=== PATIENT | female | born 1985 | race Caucasian/White ===

== ENCOUNTER 2022-06-23 13:32 | Inpatient (IN) ==
[2022-06-23 13:43] VITALS: BMI 17.2
[2022-06-23 14:04] LABS: BILIRUBIN,URINE NEGATIVE (NEGATIVE); BLOOD/HEMOGLOBIN,URINE 1+ (NEGATIVE); GLUCOSE, URINE NEGATIVE (NEGATIVE); KETONES,URINE NEGATIVE (NEGATIVE); LEUKOCYTE ESTERASE ,URINE 2+ (NEGATIVE); NITRITES,URINE NEGATIVE (NEGATIVE); PROTEIN,URINE NEGATIVE (NEGATIVE); UROBILINOGEN,URINE NORMAL (NORMAL)
[2022-06-23] MEDS ORDERED: D5 1/2 NS 1,000 ML 1,000 ML IV ONE (14:09)
[2022-06-23] MEDS ORDERED: LR 1,000 ML IV 1,000 ML IV ONE (14:09)
[2022-06-23] MEDS ORDERED: AMPICILLIN VIAL 2 GRAM ONE (14:09)
[2022-06-23] MEDS ORDERED: NS 100 ML IV 100 ML ONE (14:09)
[2022-06-23 14:10] LABS: COLOR,URINE YELLOW (YELLOW)
[2022-06-23 14:11] LABS: APPEARANCE,URINE CLEAR (CLEAR); BACTERIA,URINE NEGATIVE /HPF (NEGATIVE); RBC,URINE 0-2 /HPF (0-3); SQUAMOUS EPITHELIAL CELL,UR RARE /HPF (NEGATIVE)
[2022-06-23 14:19] LABS: AMNISURE ROM TEST THERE IS A RUPTURE (NO RUPTURE)
[2022-06-23] MEDS ORDERED: MORPHINE SULFATE INJ 2 MG INJ IVP PRN (14:27)
[2022-06-23] MEDS ORDERED: D5 LR + PITOCIN 10 UNITS/L 10 UNITS/1,000 ML BAG IV PRN (14:27)
[2022-06-23] MEDS ORDERED: REGLAN INJ 10 MG VIAL IVP PRN (14:27)
[2022-06-23] MEDS ORDERED: PITOCIN IVP ONE (14:27)
[2022-06-23] MEDS ORDERED: PHENERGAN INJ 25 MG IM PRN ×2 (14:27→17:39)
[2022-06-23] MEDS ORDERED: AMPICILLIN VIAL 2 GRAM 2 G in NS 100 ML IV + SPIKE MINIBAG* 100 ML IV SCH (15:00)
[2022-06-23] MEDS ORDERED: D5 1/2 NS 1,000 ML 1,000 ML IV SCH (15:00)
[2022-06-23 15:05] LABS: BLOOD UREA NITROGEN 4 mg/dL (7-18); CALCIUM 7.7 mg/dL (8.5-10.1); CARBON DIOXIDE 35.8 mmol/L (21-32); CHLORIDE 94 mmol/L (98-107); SODIUM 130 mmol/L (136-145); eGFR NON BLACK RACES > 60 (>60)
[2022-06-23] MEDS ORDERED: PITOCIN ONE (15:05)
[2022-06-23] MEDS ORDERED: BETADINE SOLN ONE (15:05)
[2022-06-23] MEDS ORDERED: D5 1/2 NS 1,000 mL + PITOCIN 20 UNITS/L IV 20 UNITS/1,000 ML BAG IV ONE (15:05)
[2022-06-23 15:06] LABS: BASOPHILS % (AUTO) 0.3 % (0.2-1.0); EOSINOPHILS % (AUTO) 0.4 % (0.9-2.9); HEMATOCRIT 33.2 % (36.0-47.0); HEMOGLOBIN 11.9 g/dL (12.0-16.0); LYMPHOCYTES # (AUTO) 2.4 X10^3/uL (1.3-2.9); LYMPHOCYTES % (AUTO) 21.2 % (21.0-51.0); MEAN CORPUSCULAR HEMOGLOBIN 31.1 pg (27.0-34.0); MEAN CORPUSCULAR HGB CONC 35.7 g/dL (33.0-35.0); MEAN CORPUSCULAR VOLUME 87.2 fL (80.0-100.0); MEAN PLATELET VOLUME 9.2 fL (7.4-11.0); MONOCYTES # (AUTO) 0.7 x10^3/uL (0.3-0.8); MONOCYTES % (AUTO) 6.1 % (0.0-13.0); NEUTROPHILS # (AUTO) 8.3 x10^3/uL (2.2-4.8); RED BLOOD COUNT 3.81 X10^6/uL (3.5-5.4); RED CELL DISTRIBUTION WIDTH 12.9 % (11.6-16.5); WHITE BLOOD COUNT 11.5 X10^3/uL (3.6-10.0)
[2022-06-23] MEDS: STADOL INJ IVP PRN ×2 (15:17→17:39)
[2022-06-23] MEDS ORDERED: STADOL INJ ONE ×2 (15:17→17:39)
[2022-06-23] MEDS ORDERED: AMPICILLIN VIAL 2 GRAM 2 G in NS 100 ML IV 100 ML IV NR (16:00)
[2022-06-23] MEDS ORDERED: MOTRIN TAB 800 MG PO PRN (17:39)
--- NOTE | 2022-06-23 17:39 | DR.OB ---
OB Quick Note - Assessment/Plan Assessment/Plan: Delivery Note [employer]QUOR TESTER 06/23/22 at 5:19pm Patient complete and pushing. Head delivered over intact perineum. Nose and mouth bulb suctioned. Nuchal cord x 1 reduced. Body delivered over intact perineum. Cord clamped x 2 and cut. Infant handed to attendant. Cord sent for gases. Placenta delivered spontaneously / intact / 3 vessel cord. No CVX / vaginal / perineal tears noted. Viable male , VTX/OA, wt.=3'14" and 9/9, stable to NBN. [id number].
[2022-06-23] MEDS: D5 1/2 NS 1,000 ML 1,000 ML with PITOCIN 20 UNITS IV SCH ×2 (18:03)
[2022-06-23] MEDS ORDERED: PERCOCET TAB 5/325 MG PO PRN (18:32)
[2022-06-23] MEDS ORDERED: AMBIEN PO PRN (18:32)
[2022-06-23] MEDS ORDERED: MILK OF MAGNESIA PO PRN (18:32)
[2022-06-23] MEDS ORDERED: ADACEL or BOOSTRIX TDaP VACCINE IM ONE (18:32)
[2022-06-23] MEDS ORDERED: DERMOPLAST PAIN RELIEF SPRAY TOP PRN (18:32)
[2022-06-23] MEDS: NORMODYNE TAB 100 MG PO SCH (21:23)
[2022-06-23] MEDS ORDERED: MYLICON TAB 80 MG CHEW PO PRN (21:44)
[2022-06-23] MEDS: NICOTINE PATCH TD SCH (22:17)
[2022-06-24] MEDS: D5 1/2 NS 1,000 ML 1,000 ML with PITOCIN 20 UNITS IV SCH ×2 (02:16)
[2022-06-24 05:10] LABS: HEMATOCRIT 29.3 % (36.0-47.0); HEMOGLOBIN 10.5 g/dL (12.0-16.0)
[2022-06-24 06:02] VITALS: BP 101/65
[2022-06-24] MEDS ORDERED: PROTONIX TAB 40 MG PO ONE (07:58)
[2022-06-24] MEDS ORDERED: ADACEL or BOOSTRIX TDaP VACCINE IM ONE (08:01)
[2022-06-24] MEDS: NICOTINE PATCH TD SCH (08:14)
[2022-06-24] MEDS: NORMODYNE TAB 100 MG PO SCH (08:14)
[2022-06-24] MEDS ORDERED: PRENATAL PLUS PO SCH (09:00)
[2022-06-24] MEDS ORDERED: PROTONIX TAB 40 MG PO SCH (09:00)
== END 2022-06-24 09:14 | disposition home or self-care (01) | DRG 998 ==
LOC: ER 13:32 → LD 14:27 → ICU 18:50
PROVIDERS: ADMIT Specialist; ATTEND Specialist
DX: O36.5930 Maternal care for other known or suspected poor fetal growth, third trimester, not applicable or unspecified; Z37.0 Single live birth; Z3A.35 35 weeks gestation of pregnancy; O10.913 Unspecified pre-existing hypertension complicating pregnancy, third trimester; Z72.0 Tobacco use; O60.14X0 Preterm labor third trimester with preterm delivery third trimester, not applicable or unspecified; Z20.822 Contact with and (suspected) exposure to COVID-19